=== PATIENT | male | born 1960 | race Caucasian/White ===

== ENCOUNTER 2023-07-03 12:54 | Emergency (ER) | payer OTHER ==
[2023-07-03] MEDS: cefTRIAXone 1 GM, Lidocaine 1% 2.1 ML IM SCH (14:35)
[2023-07-03] MEDS: Lidocaine 1% 10 ML MDV INJECT ONE (14:39)
[2023-07-03] MEDS: Amoxicillin/Clavulanate K 875-125 MG Tab PO ONE (15:54)
[2023-07-03] MEDS: Diphtheria,Pertussis(Acell),Tetanus Vaccine 0.5 ML Syringe IM ONE (15:55)
== END 2023-07-03 15:45 | disposition home or self-care (01) ==
LOC: JD.ED 12:54
DX: S60.450A Superficial foreign body of right index finger, initial encounter (principal); L08.9 Local infection of the skin and subcutaneous tissue, unspecified; Z88.2 Allergy status to sulfonamides; Z88.8 Allergy status to other drugs, medicaments and biological substances; Z23 Encounter for immunization; W22.8XXA Striking against or struck by other objects, initial encounter
CPT/HCPCS: 73140; 76881; 90471; 90715; 96372; 99284; A9270; J0696; 99283; J3490